=== PATIENT | female | born 1960 | race Caucasian/White ===

== ENCOUNTER → 2017-08-05 | Outpatient (CLI) | payer BC ==
[~2017-08-05] MED LIST: ASP81CT PO; CALC-697 PO; CYCL25CA2 PO; DXZS4T PO; FLUT16SP22 NS; LRT10T PO; LVT.1T PO; NF-VAL40T PO; TRM50T PO; [UNRECOGNIZED DRUG - OTHER] PO
[2017-08-05 10:48] LABS: BASOPHILS % (AUTO) 0 % (0-10); EOSINOPHILS # (AUTO) 0.2 10^3/uL (0.0-0.3); EOSINOPHILS % (AUTO) 2 % (0-10); LYMPHOCYTES # (AUTO) 0.5 X 10^3 (1.0-4.0); LYMPHOCYTES % (AUTO) 7 % (12-44); MEAN CORPUSCULAR HEMOGLOBIN 30 PG (25-34); MEAN CORPUSCULAR HGB CONC 32 G/DL (32-36); MEAN CORPUSCULAR VOLUME 94 FL (80-99); MEAN PLATELET VOLUME 9.3 FL (7.4-10.4); MONOCYTES # (AUTO) 0.3 X 10^3 (0.0-1.0); MONOCYTES % (AUTO) 4 % (0-12); NEUTROPHILS # (AUTO) 6.2 X 10^3 (1.8-7.8); NEUTROPHILS % (AUTO) 87 % (42-75); PLATELET COUNT 144 10^3/uL (130-400); RED BLOOD COUNT 2.77 10^6/uL (4.35-5.85); RED CELL DISTRIBUTION WIDTH 17.2 % (10.0-14.5); WHITE BLOOD COUNT 7.2 10^3/uL (4.3-11.0)
[2017-08-05 11:16] LABS: ANISOCYTOSIS MARKED; BAND NEUTROPHILS 0 %; BASOPHILS % (MANUAL) 0 %; EOSINOPHILS % (MANUAL) 1 %; LYMPHOCYTES % (MANUAL) 8 %; NEUTROPHILS % (MANUAL) 88 %
[2017-08-05 11:19] LABS: ALANINE AMINOTRANSFERASE 14 U/L (0-55); ALBUMIN 2.7 GM/DL (3.2-4.5); ANION GAP 7 MMOL/L (5-14); ASPARTATE AMINO TRANSFERASE 13 U/L (5-34); BILIRUBIN,TOTAL 0.6 MG/DL (0.1-1.0); BLOOD UREA NITROGEN 20 MG/DL (7-18); BUN/CREATININE RATIO 23; CALCIUM 8.5 MG/DL (8.5-10.1); CARBON DIOXIDE 24 MMOL/L (21-32); CHLORIDE 108 MMOL/L (98-107); CREATININE SERUM 0.88 MG/DL (0.60-1.30); GFR ESTIMATED > 60; GLUCOSE 93 MG/DL (70-105); MAGNESIUM 1.7 MG/DL (1.8-2.4); POTASSIUM 3.8 MMOL/L (3.6-5.0); SODIUM 139 MMOL/L (135-145); TOTAL PROTEIN 5.6 GM/DL (6.4-8.2)
[2017-08-06 07:05] LABS: FK506 7.8 ng/mL
== END ==
LOC: HH 07:00
PROVIDERS: ATTEND Internal Medicine Sleep Medicine
DX: Z48.23 Encounter for aftercare following liver transplant (principal); Z94.4 Liver transplant status
CPT/HCPCS: 80053; 80197; 82977; 83735; 85007; 85027

== ENCOUNTER → 2017-08-13 | Outpatient (CLI) | payer BC ==
[2017-08-13 11:50] LABS: BASOPHILS % (AUTO) 1 % (0-10); EOSINOPHILS # (AUTO) 0.1 10^3/uL (0.0-0.3); EOSINOPHILS % (AUTO) 2 % (0-10); HEMATOCRIT 24 % (35-52); HEMOGLOBIN 7.6 G/DL (11.5-16.0); LYMPHOCYTES # (AUTO) 0.4 X 10^3 (1.0-4.0); LYMPHOCYTES % (AUTO) 9 % (12-44); MEAN CORPUSCULAR HEMOGLOBIN 30 PG (25-34); MEAN CORPUSCULAR HGB CONC 32 G/DL (32-36); MEAN CORPUSCULAR VOLUME 94 FL (80-99); MEAN PLATELET VOLUME 9.6 FL (7.4-10.4); MONOCYTES # (AUTO) 0.2 X 10^3 (0.0-1.0); MONOCYTES % (AUTO) 4 % (0-12); NEUTROPHILS # (AUTO) 3.5 X 10^3 (1.8-7.8); NEUTROPHILS % (AUTO) 84 % (42-75); PLATELET COUNT 125 10^3/uL (130-400); RED BLOOD COUNT 2.52 10^6/uL (4.35-5.85); RED CELL DISTRIBUTION WIDTH 18.2 % (10.0-14.5); WHITE BLOOD COUNT 4.1 10^3/uL (4.3-11.0)
[2017-08-13 12:06] LABS: ALANINE AMINOTRANSFERASE 9 U/L (0-55); ALBUMIN 2.9 GM/DL (3.2-4.5); ALKALINE PHOSPHATASE 115 U/L (40-136); BILIRUBIN,TOTAL 0.6 MG/DL (0.1-1.0); BUN/CREATININE RATIO 18; CALCIUM 8.5 MG/DL (8.5-10.1); CARBON DIOXIDE 18 MMOL/L (21-32); CHLORIDE 109 MMOL/L (98-107); GFR ESTIMATED > 60; GLUCOSE 69 MG/DL (70-105); MAGNESIUM 1.6 MG/DL (1.8-2.4); POTASSIUM 3.8 MMOL/L (3.6-5.0); SODIUM 141 MMOL/L (135-145); TOTAL PROTEIN 5.5 GM/DL (6.4-8.2)
== END ==
LOC: HH 07:00
PROVIDERS: ATTEND Internal Medicine Sleep Medicine
DX: Z09 Encounter for follow-up examination after completed treatment for conditions other than malignant neoplasm (principal); Z94.4 Liver transplant status
CPT/HCPCS: 80053; 82977; 83735; 85025

== ENCOUNTER → 2018-11-23 | Emergency (ER) | payer OTHER ==
[~2018-11-23] VITALS: Ht 149.9 cm; Wt 56.7 kg
[~2018-11-23] MED LIST changes: +HYDR-4226 PO; +RX-HYDROCODONE/APAP 5/325 MG #4 TAB PK PO PRN
--- NOTE | 2018-11-23 20:04 | ED Upper Extremity ---
General Chief Complaint: Upper Extremity Stated Complaint: R HAND PAIN AFTER FALLING ON IT Nursing Triage Note: pt arrived pov with with c/o right wrist pain after fall around 1530 today. Pt states the pain just continues to get worse. limited ROM Nursing Sepsis Screen: No Definite Risk Source: patient Exam Limitations: no limitations History of Present Illness Date Seen by Provider: Nov 23, 2018 Time Seen by Provider: 20:01 Initial Comments To ER template by her with reports of right wrist pain after a fall at about 2:30 today. States that she has known osteoporosis. Also has an abrasion to the posterior right elbow. 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 Onset: just prior to arrival Severity: moderate Pain/Injury Location: right elbow, right wrist Method of Injury: fell Modifying Factors: Worse With Movement Allergies and Home Medications Allergies Coded Allergies: Sulfa(Sulfonamide Antibiotics) (Verified Allergy, Unknown, hives, 12/02/11) ondansetron HCl (Verified Allergy, 12/02/11) stops her breathing. Home Medications Aspirin 81 Mg Chew, 81 MG PO DAILY, (Reported) Calcium Carbonate/Vitamin D3 1 Each Tablet, 1 EACH PO DAILY, (Reported) Cyclosporine, Modified 25 Mg Capsule, 75 MG PO BID, (Reported) Doxazosin Mesylate 4 Mg Tablet, 1 EACH PO HS, (Reported) Fluticasone Propionate 16 Gm Naspr, 16 GM NS DAILY, (Reported) Hydrocodone/Acetaminophen 1 Each Tablet, 1 EACH PO Q6H PRN for PAIN-MODERATE Prescribed by: DALE FRYE on 11/23/182003 Levothyroxine Sodium 100 Mcg Tablet, 1 EACH PO DAILY, (Reported) Loratadine 10 Mg Tab, 10 MG PO DAILY, (Reported) Tramadol Hcl 50 Mg Tab, 50 MG PO BID PRN Prescribed by: NASIR MATOS on 12/02/11 0240 Valsartan 40 Mg Tablet, 40 MG PO HS, (Reported) [zabeta] , 1 EA PO HS, (Reported) Patient Home Medication List Home Medication List Reviewed: Yes Review of Systems Constitutional: see HPI EENTM: see HPI Respiratory: no symptoms reported Cardiovascular: no symptoms reported Genitourinary: no symptoms reported Musculoskeletal: see HPI Skin: no symptoms reported Psychiatric/Neurological: No Symptoms Reported Past Kjypyoi-Reghji-Ngsdri Hx Patient Social History Recent Foreign Travel: No Contact w/Someone Who Travel: No Recent Infectious Disease Expo: No Physical Exam Vital Signs Vital Signs - First Documented 11/23/18 19:49 Temp 98.0 Pulse 70 Resp 18 B/P (MAP) 168/79 (108) Pulse Ox 97 O2 Delivery Room Air Capillary Refill : Less Than 3 Seconds Height, Weight, BMI Height: 4'11.00" Weight: 125lbs. oz. 56.564754pv; BMI Method:Stated General Appearance: WD/WN, no apparent distress HEENT: PERRL/EOMI, normal ENT inspection Shoulder: normal inspection, non-tender Elbow/Forearm: non-tender, abrasions (the posterior right elbow no swelling for range of motion with extension and flexion and supination pronation) Wrist: Yes pain (wrist), Yes swelling Hand: normal inspection, non-tender, Right (normal range of motion and sensation and capillary refill of the fingertips) Neurologic/Psychiatric: alert, normal mood/affect, oriented x 3 Skin: normal color, warm/dry Progress/Results/Core Measures Results/Orders My Orders Orders - DALE FRYE APRN Wrist, Right, 3 Views Or More (11/23/18 19:57) Elbow, Right, 3 Views (11/23/18 19:57) Rx-Hydrocodone/Apap 5-325 Mg (Rx-Vicodin (11/23/18 20:00) Medications Given in ED Current Medications Medications Dose Ordered Sig/Radha Route Start Time Stop Time Status Last Admin Dose Admin Acetaminophen/ Hydrocodone Bitart 1 ea Q4H PRN PO 11/23/18 20:00 11/23/18 20:14 1 EA Vital Signs/I&O 11/23/18 19:49 Temp 98.0 Pulse 70 Resp 18 B/P (MAP) 168/79 (108) Pulse Ox 97 O2 Delivery Room Air Blood Pressure Mean: 108 Departure Impression Primary Impression: Right wrist sprain Disposition: 01 HOME, SELF-CARE Condition: Stable Departure-Patient Inst. Decision time for Depature: 20:03 Referrals: JONO GONSALES DO (PCP/Family) Primary Care Physician Patient Instructions: Wrist Sprain (DC) Add. Discharge Instructions: 1. REturn to ER for any concerns. Splint at all times except when showering for 2-3 days. . All discharge instructions reviewed with patient and/or family. Voiced understanding. DALE FRYE CHEMICAL ENGINEER Nov 23, 2018 20:04
--- NOTE | 2018-11-23 20:16 | Diagnostic Imaging Report ---
INDICATION: Fell at 1530 today with right wrist and elbow pain. Patient has limited range of motion. FINDINGS: 3 views of the right elbow demonstrate osteopenia. No fracture, dislocation, or joint effusion is present. IMPRESSION: There is osteopenia with no acute findings. Dictated by: Dictated on workstation # [id number]
--- NOTE | 2018-11-23 20:17 | Diagnostic Imaging Report ---
INDICATION: Fell at 1530 today with right wrist pain. FINDINGS: 3 views of the right wrist demonstrate no fracture or dislocation. Osteopenia is present. IMPRESSION: There is osteopenia with no acute findings to the right wrist. Dictated by: Dictated on workstation # [id number]
[2018-11-23 20:32] VITALS: BP 164/72
== END | disposition home or self-care (01) ==
LOC: EDUNIT# 19:41 → ER 19:42
DX: S63.91XA Sprain of unspecified part of right wrist and hand, initial encounter (principal); M81.0 Age-related osteoporosis without current pathological fracture; Z88.2 Allergy status to sulfonamides; Z88.8 Allergy status to other drugs, medicaments and biological substances; Z79.82 Long term (current) use of aspirin; Z79.51 Long term (current) use of inhaled steroids; W19.XXXA Unspecified fall, initial encounter
CPT/HCPCS: 73080; 73110